=== PATIENT | female | born 1970 | race Caucasian/White ===

== ENCOUNTER → 2017-07-19 | Outpatient (CLI) | payer BC ==
--- NOTE | 2017-07-19 16:13 | Diagnostic Imaging Report ---
EXAM: CT Chest WITHOUT contrast INDICATION: \[id number] \S\1010 \S\MODERATE PERSISTENT ASTHMA COMPARISON: Chest CT dated 03/11/2016. TECHNIQUE: Chest was scanned utilizing a multidetector helical scanner from the lung apex through the level of the adrenal glands without administration of IV contrast. Absence of intravenous contrast decreases sensitivity for detection of lymphadenopathy and vascular pathology. Coronal and sagittal reformations were obtained. High-resolution protocol was performed. IV CONTRAST: None COMPLICATIONS: None RADIATION DOSE: Total DLP: 1546.66 mGy*cm Estimated effective dose: (DLP x 0.014 x size factor) mSv CTDIvol has been reviewed. It is below the limits set by the Radiation Protocol Committee (RPC). FINDINGS: LINES/ TUBES: None. LUNGS AND AIRWAYS: Left lower lobe calcified granuloma. Redemonstration of stable triangular nodule in the right minor fissure (series 2, image 60) measuring 4 mm, probably an intrapulmonary lymph node. Stable anterior left upper lobe 4 mm groundglass nodule (series 2, image 37). Unchanged 3 mm left upper lobe nodule (series 2, image 34). No evidence of air trapping on expiration. No evidence of fibrotic changes. Change left apical density, likely mild scarring. Airways are normal. PLEURA: The pleural spaces are clear. HEART AND MEDIASTINUM: The thyroid gland is normal. Scattered nonspecific subcentimeter mediastinal lymph nodes are visualized. The largest node measures 1.4 cm in the subcarinal region (series 3, image 57) and has been stable. No axillary lymphadenopathy. Calcified left hilar and mediastinal lymph nodes. The heart is normal in size.. There is no pericardial effusion. UPPER ABDOMEN: Unremarkable. Splenic calcified granuloma. BONES: The visualized bony thorax is within normal limits. SOFT TISSUES: Asymmetric breast tissue density with increased left superior breast tissue (series 3, image 29). IMPRESSION: No evidence of interstitial pulmonary disease. No significant interval change from CT dated 03/11/2016. Nonspecific lung nodules and intrapulmonary lymph node as described above. Signed by: Dr. Asad Galloway MD on 07/19/2017 4:09 PM
== END ==
LOC: CT 10:00
PROVIDERS: ATTEND Internal Medicine Pulmonary Disease
DX: J45.42 Moderate persistent asthma with status asthmaticus (principal)
CPT/HCPCS: 71250

== ENCOUNTER → 2017-09-28 | Outpatient (CLI) | payer BC ==
[2017-09-28 09:31] LABS: BASOPHILS # (AUTO) 0.1 (0.0-0.1); BASOPHILS % 0.3 % (0.0-1.0); EOSINOPHILS # (AUTO) 3.2 (0.0-0.4); EOSINOPHILS % 19.7 % (0.0-6.0); HEMATOCRIT 37.5 % (34.2-44.1); HEMOGLOBIN 12.8 g/dL (12.0-16.0); LYMPHOCYTES # (AUTO) 1.7 (1.0-3.2); LYMPHOCYTES % 10.5 % (18.0-39.1); MEAN CORPUSCULAR HEMOGLOBIN 30.8 pg (28-32); MEAN CORPUSCULAR HGB CONC 34.1 g/dL (31-35); MEAN CORPUSCULAR VOLUME 90.1 fL (81-99); MONOCYTES % 5.9 % (4.4-11.3); NEUTROPHILS # (AUTO) 10.4 (2.1-6.9); NEUTROPHILS % 63.2 % (38.7-80.0); PLATELET COUNT 303 x10e3/uL (140-360); RED BLOOD COUNT 4.16 x10e6/uL (3.6-5.1); RED CELL DISTRIBUTION WIDTH 12.9 % (11.7-14.4)
[2017-09-28 09:55] LABS: ALANINE AMINOTRANSFERASE 11 IU/L (0-55); ALBUMIN 3.7 g/dL (3.5-5.0); ALBUMIN/GLOBULIN RATIO 1.1 (0.8-2.0); ALKALINE PHOSPHATASE 61 IU/L (40-150); ANION GAP 11.4 mmol/L (8-16); BLOOD UREA NITROGEN 13 mg/dL (7-26); BUN/CREATININE RATIO 16 (6-25); CALCIUM 9.3 mg/dL (8.4-10.2); CARBON DIOXIDE 27 mmol/L (22-29); CHLORIDE 106 mmol/L (98-107); CHOL/HDL RATIO 3.1 (3.0-3.6); CHOLESTEROL 206 MD/DL (0-199); EST GLOMERULAR FILTRATION RATE > 60 ML/MIN (60-); GLUCOSE 99 mg/dL (74-118); HDL CHOLESTEROL 67 MG/DL (40-60); IRON 55 ug/dL (50-170); LDL CHOLESTEROL 115 MG/DL (60-130); POTASSIUM 3.4 mmol/L (3.5-5.1); SODIUM 141 mmol/L (136-145); TRIGLYCERIDES 119 MG/DL (0-149)
[2017-09-28 10:18] LABS: FREE T4 (FREE THYROXINE) 0.94 ng/dL (0.9-1.8); HCG,QUANTITATIVE < 1.20 mIU/mL (0-10); THYROID STIMULATING HORMONE 1.604 uIU/mL (0.350-4.940)
[2017-09-28 14:00] LABS: EOSINOPHILS % (MANUAL) 21 % (0-7); LYMPHOCYTES % (MANUAL) 13 % (19-48); MONOCYTES % (MANUAL) 1 % (3.4-9.0); NEUTROPHILS % (MANUAL) 64 % (40-74); PLATELET ESTIMATE ADEQUATE; RBC MORPHOLOGY COMMENT NORMAL
[2017-09-28 14:01] LABS: PLATELET MORPHOLOGY COMMENT NORMAL
--- NOTE | 2017-09-28 16:54 | Diagnostic Imaging Report ---
PROCEDURE:US RETROPERITONEAL ( KIDNEY ). COMPARISON:Patients [facility], US, US RENAL, 07/01/2011, 15:28. INDICATIONS:MICROHEMATURIA TECHNIQUE: [place]-scale and color sonographic images of the bilateral kidneys and bladder where obtained in transverse and longitudinal planes. FINDINGS: RIGHT KIDNEY: 9.9 cm, cortex 2.1 cm Cysts: None Solid masses: None Stones: None Hydronephrosis: None Echogenicity: Normal LEFT KIDNEY: 10.3 cm, cortex 1.8 cm Cysts: None Solid masses: None Stones: None Hydronephrosis: None Echogenicity: Normal Bladder: No focal lesions. Bilateral ureteral jets are identified. CONCLUSION: 1. Unremarkable renal ultrasound. Amanuel Cavazos M.D. Dictated by: Amanuel Cavazos M.D. on 09/28/2017 at 16:55 Electronically approved by: Amanuel Cavazos M.D. on 09/28/2017 at 16:55
--- NOTE | 2017-09-28 16:59 | Diagnostic Imaging Report ---
PROCEDURE:TRANSVAGINAL ULTRASOUND COMPARISON:None. INDICATIONS:AMENORHEA TECHNIQUE: Grayscale transverse and sagittal transabdominal and transvaginal images were obtained of the pelvis. Transvaginal imaging was medically necessary to better visualize the endometrium.. FINDINGS: 47 year-old female patient G2, P2. A0, with stated LMP 06/04/2017 UTERUS: 6.2 x 3.0 x 4.1 cm. Normal echogenicity. 0.7 x 0.4 x 0.8 cm hypoechoic lesion in the mid left body, consistent with a small fibroid. 2 cystic, anechoic nabothian cysts are noted in the cervix, measuring 0.7 x 0.4 x 0.5 cm and 0.6 x 0.5 x 0.7 cm. ENDOMETRIUM: 0.5 cm. Homogeneous echotexture, without focal thickening. RIGHT OVARY: 2.7 x 1.4 x 1.9 cm. 1.7 x 1.1 x 1.6 cm cystic, anechoic structure, likely a centimeter dominant follicle and less likely a follicular cyst. LEFT OVARY: 1.3 x 0.8 x 1.3 cm. 0.6 x 0.4 x 1.0 cm cystic, anechoic structure, likely representing a follicle. There is no free fluid within the pelvis. No adnexal masses. CONCLUSION: 1. 0.8 cm fibroid in the mid left uterine body. 2. 1.7 cm right ovarian dominant follicle and less likely a small follicular simple cyst. No further followup is indicated. Amanuel Cavazos M.D. Dictated by: Amanuel Cavazos M.D. on 09/28/2017 at 16:59 Electronically approved by: Amanuel Cavazos M.D. on 09/28/2017 at 16:59
== END ==
LOC: LAB 09:09
PROVIDERS: ATTEND Family Medicine
DX: R31.29 Other microscopic hematuria (principal); N91.2 Amenorrhea, unspecified
CPT/HCPCS: 36415; 76770; 76830; 80053; 80061; 82607; 82652; 83001; 83036; 83540; 83615; 84439; 84443; 84702; 85025

== ENCOUNTER → 2017-09-29 | Outpatient (CLI) | payer BC ==
--- NOTE | 2017-09-30 16:08 | Diagnostic Imaging Report ---
#[id number] - MGSCRBIL #BILATERAL DIGITAL SCREENING MAMMOGRAM WITH CAD: 09/29/2017 CLINICAL: Routine screening. Comparison is made to exams dated: 08/09/2014 mammogram, 01/31/2014 mammogram and 01/19/2014 mammogram - [facility]. The tissue of both breasts is heterogeneously dense. This may lower the sensitivity of mammography. Current study was also evaluated with a Computer Aided Detection (CAD) system and contains 4 films. There are benign calcifications and an asymmetric density in the left breast that appear stable. No significant masses, calcifications, or other findings are seen in either breast. There has been no significant interval change. IMPRESSION: BENIGN There is no mammographic evidence of malignancy. A 1 year screening mammogram is recommended. The patient will be notified by letter of the results. Beni Hensley Jr., D.O. cw/:09/30/2017 13:31:34 Line Maintainer Section: Emma FERNANDEZ(Rashid)(Suresh), [facility] letter sent: Compared to Prior B9 Mammogram BI-RADS: 2 Benign
== END ==
LOC: MAMMO 09:33
PROVIDERS: ATTEND Family Medicine
DX: Z12.31 Encounter for screening mammogram for malignant neoplasm of breast (principal)
CPT/HCPCS: 77067

== ENCOUNTER → 2018-08-25 | Outpatient (CLI) | payer BC ==
--- NOTE | 2018-08-25 14:40 | Diagnostic Imaging Report ---
Exam: Bone mineral density study. History: AGE RELATED OSTEOPOROSIS W/O CURRENT PATH FX Comparison: None available. Discussion: Evaluation of the left hip and lumbar spine was performed. The study is technically adequate. The patient's fracture risk is compared to an age-matched control. The patient denies prior surgery/fracture of the spine, hips or forearm. Left hip femoral neck bone mineral density: 0.7 g/cm2, T-score is -1.2, Z-score is -0.7. Left hip total bone mineral density: 0.9 g/cm2, T-score is -0.7, Z-score is -0.4. The BMD change versus baseline is + 6.7% (statistically significant) and the BMD change versus previous + 3.8% (statistically significant). Lumbar spine total bone mineral density: 0.8 g/cm2, T-score is -2.4, Z-score is -1.9. The BMD change versus baseline is - 2.6% (not statistically significant) and the BMD change versus previous - 8.4% (statistically significant). Impression: 1. Bone mineralization by WHO Classification is low bone mass/osteopenia, the fracture risk is increased. 2. The FRAX 10-year probability of major osteoporotic fracture is 3% and hip fracture is 0.2%. These probabilities assume the patient is untreated. Signed by: Dr. Darrel King D.O., M.M.M. on 08/25/2018 2:37 PM
== END ==
LOC: DX 09:17
PROVIDERS: ATTEND Internal Medicine
DX: M81.0 Age-related osteoporosis without current pathological fracture (principal)
CPT/HCPCS: 77080

== ENCOUNTER → 2018-11-22 | Outpatient (CLI) | payer BC ==
[2018-11-22 10:53] LABS: BASOPHILS % 0.4 % (0.0-1.0); EOSINOPHILS # (AUTO) 1.3 (0.0-0.4); EOSINOPHILS % 13.4 % (0.0-6.0); HEMATOCRIT 38.9 % (34.2-44.1); HEMOGLOBIN 13.2 g/dL (12.0-16.0); LYMPHOCYTES # (AUTO) 2.6 (1.0-3.2); MEAN CORPUSCULAR HEMOGLOBIN 30.1 pg (28-32); MEAN CORPUSCULAR HGB CONC 33.9 g/dL (31-35); MEAN CORPUSCULAR VOLUME 88.8 fL (81-99); MONOCYTES # (AUTO) 0.9 (0.2-0.8); MONOCYTES % 9.3 % (4.4-11.3); NEUTROPHILS % 50.6 % (38.7-80.0); PLATELET COUNT 304 x10e3/uL (140-360); RED BLOOD COUNT 4.38 x10e6/uL (3.6-5.1); RED CELL DISTRIBUTION WIDTH 13.4 % (11.7-14.4)
[2018-11-22 11:14] LABS: ALANINE AMINOTRANSFERASE 18 IU/L (0-55); ALBUMIN 4.1 g/dL (3.5-5.0); ALBUMIN/GLOBULIN RATIO 1.4 (0.8-2.0); ALKALINE PHOSPHATASE 58 IU/L (40-150); BLOOD UREA NITROGEN 13 mg/dL (7-26); BUN/CREATININE RATIO 15 (6-25); CALCIUM 9.5 mg/dL (8.4-10.2); CARBON DIOXIDE 24 mmol/L (22-29); CHLORIDE 105 mmol/L (98-107); CREATININE, SERUM 0.85 mg/dL (0.57-1.11); EST GLOMERULAR FILTRATION RATE > 60 ML/MIN (60-); GLUCOSE 82 mg/dL (74-118); SODIUM 139 mmol/L (136-145)
[2018-11-22 11:45] LABS: ERYTHROCYTE SEDIMENTATION RATE 11 mm/hr (0-20)
[2018-11-22 11:56] LABS: THYROID STIMULATING HORMONE 1.031 uIU/mL (0.350-4.940)
[2018-11-22 12:28] LABS: FOLATE 14.7 ng/mL (7.0-15.4)
== END ==
LOC: LAB 10:20
PROVIDERS: ATTEND Internal Medicine
DX: M31.30 Wegener's granulomatosis without renal involvement (principal); M30.1 Polyarteritis with lung involvement [Churg-Strauss]; J45.998 Other asthma; M81.0 Age-related osteoporosis without current pathological fracture; Z79.52 Long term (current) use of systemic steroids
CPT/HCPCS: 36415; 80053; 82553; 82607; 82652; 82746; 84436; 84443; 85025; 85651; 86021; 86140

== ENCOUNTER → 2018-12-06 | Outpatient (CLI) | payer BC | LOC: MAMMO 14:21 | PROVIDERS: ATTEND Family Medicine | DX: Z12.31 Encounter for screening mammogram for malignant neoplasm of breast (principal) | CPT/HCPCS: 77067 ==

== ENCOUNTER → 2018-12-15 | Outpatient (CLI) | payer BC ==
--- NOTE | 2018-12-15 16:39 | Diagnostic Imaging Report ---
#[id number] - USBRELIMRT ULTRASOUND OF THE RIGHT BREAST : 12/15/2018 Comparison is made to exam dated: 12/15/2018 mammogram - [facility]. Color flow and real-time ultrasound were performed on the right breast in the upper outer aspect of the right breast. -No cystic or solid lesion is identified. IMPRESSION: NEGATIVE There is no sonographic evidence of malignancy. A 1 year screening mammogram is recommended. Beni Hensley Jr., D.O. cw/:12/15/2018 14:36:12 Shift Engineer: SIXTO PINTO RDMS, [facility] letter sent: Normal Exam Ultrasound BI-RADS: 1 Negative
--- NOTE | 2018-12-15 16:39 | Diagnostic Imaging Report ---
#[id number] - MGDXRT #UNILATERAL RIGHT DIGITAL DIAGNOSTIC MAMMOGRAM WITH SPOT COMPRESSION: 12/15/2018 Comparison is made to exams dated: 12/06/2018 mammogram and 09/29/2017 mammogram - [facility]. Current study contains 3 films. The tissue of the right breast is heterogeneously dense. This may lower the sensitivity of mammography. The previously identified tubular mass in the upper outer quadrant of the right breast is not seen with focal spot compression today. No significant masses, calcifications, or other findings are seen in the breast. There has been no significant interval change. IMPRESSION: BENIGN There is no mammographic evidence of malignancy. A 1 year screening mammogram is recommended. The patient will be notified by letter of the results. Beni Hensley Jr., D.O. cw/:12/15/2018 14:33:31 Rickshaw Driver: Emma FERNANDEZ(Rashid)(M), [facility] letter sent: Normal Exam Mammogram BI-RADS: 2 Benign
== END ==
LOC: MAMMO 11:43
PROVIDERS: ATTEND Family Medicine
DX: N63.10 Unspecified lump in the right breast, unspecified quadrant (principal)

== ENCOUNTER 2022-08-03 00:58 | Emergency (ER) | payer BC ==
[~2022-08-03] VITALS: Ht 160 cm; Wt 61.2 kg
[2022-08-03] MEDS ORDERED: ASPIRIN 325 MG TAB PO ONE (01:15)
[2022-08-03 01:33] LABS: BASOPHILS % 0.1 % (0.0-1.0); HEMATOCRIT 40.2 % (34.2-44.1); HEMOGLOBIN 12.9 g/dL (12.0-16.0); LYMPHOCYTES # (AUTO) 3.4 (1.0-3.2); LYMPHOCYTES % 43.5 % (18.0-39.1); MEAN CORPUSCULAR HEMOGLOBIN 29.9 pg (28-32); MEAN CORPUSCULAR HGB CONC 32.1 g/dL (31-35); MEAN CORPUSCULAR VOLUME 93.3 fL (81-99); MONOCYTES # (AUTO) 0.7 (0.2-0.8); MONOCYTES % 8.3 % (4.4-11.3); NEUTROPHILS # (AUTO) 3.8 (2.1-6.9); PLATELET COUNT 301 x10e3/uL (140-360); RED BLOOD COUNT 4.31 x10e6/uL (3.6-5.1); RED CELL DISTRIBUTION WIDTH 12.5 % (11.7-14.4)
[2022-08-03 01:42] LABS: INR 0.89; PROTHROMBIN TIME 12.3 seconds (11.9-14.5)
[2022-08-03 01:43] LABS: PARTIAL THROMBOPLASTIN TIME 25.2 seconds (23.8-35.5)
[2022-08-03 01:51] LABS: ALBUMIN 4.1 g/dL (3.5-5.0); ALBUMIN/GLOBULIN RATIO 1.4 (0.8-2.0); ANION GAP 11.8 mmol/L (8-16); CALCIUM 9.8 mg/dL (8.4-10.2); CREATININE, SERUM 0.96 mg/dL (0.57-1.11); POTASSIUM 3.8 mmol/L (3.5-5.1)
[2022-08-03 02:30] LABS: CLARITY,URINE CLOUDY (CLEAR); COLOR,URINE YELLOW (YELLOW); KETONES,URINE NEGATIVE (NEGATIVE); LEUKOCYTE ESTERASE ,URINE 1+ (NEGATIVE); NITRITE,URINE NEGATIVE (NEGATIVE); PROTEIN,URINE DIPSTICK NEGATIVE (NEGATIVE); URINE UROBILINOGEN 0.2 mg/dL (0.2 - 1)
[2022-08-03 02:38] LABS: BACTERIA,URINE MANY /HPF; EPITHELIAL CELLS,URINE MODERATE /LPF; MUCUS,URINE FEW (RARE)
[2022-08-03 04:19] VITALS: BP 138/75
[2022-08-03] MEDS ORDERED: SODIUM CHLORIDE FLUSH 10 ML SYR IV PRN (06:00)
== END 2022-08-03 04:14 | disposition home or self-care (01) ==
LOC: ER 01:02
DX: R07.9 Chest pain, unspecified (principal); M30.1 Polyarteritis with lung involvement [Churg-Strauss]; Z88.2 Allergy status to sulfonamides; Z87.891 Personal history of nicotine dependence
CPT/HCPCS: 36415; 71045; 80053; 81001; 83690; 83880; 84484; 85025; 85379; 85610; 85730; 93005; 99284